=== PATIENT | female | born 1955 | race Caucasian/White ===

== ENCOUNTER → 2016-08-26 | Outpatient (CLI) | payer OTHER ==
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
== END ==
LOC: HRAD 09:58
DX: R20.9 Unspecified disturbances of skin sensation (principal)
CPT/HCPCS: 93931